=== PATIENT | male | born 1960 | race Caucasian/White ===

== ENCOUNTER 2017-09-30 14:16 | Outpatient (CLI) | payer OTHER ==
[2017-09-30] MEDS ORDERED: EPINEPHrine 1 MG/ML AMP ONE (14:30)
[2017-09-30] MEDS ORDERED: Lidocaine 1% PF 10 ML AMP ONE (14:30)
[2017-09-30] MEDS ORDERED: Iopamidol 300 61% 50 ML VIAL FS ONE (14:30)
[2017-09-30] MEDS ORDERED: Gadobenate Dimeglumine 529 MG/1 ML (20ML VIAL) ONE (14:30)
--- NOTE | 2017-09-30 18:08 | RAD ---
FLUOROSCOPIC GUIDED LEFT SHOULDER ARTHROGRAM: Date: 09/30/17 HISTORY: Left shoulder pain. FLUOROSCOPY: Total fluoroscopy time 0.4 minutes with total dose of 24.3 mGy*cm^2. TECHNIQUE: The procedure, including risks and complications, were explained to the patient and informed consent was obtained. The patient was placed on the fluoroscopy table in the supine position. The left should er was placed in external rotation. Area overlying the upper 1/3 left glenohumeral joint was marked, and the area was then meticulously prepped and draped in the sterile fashion. Skin and subcutaneous tissues were infiltrated with buffered 1% lidocaine for local anesthesia. A 22 gauge spinal needle was then advanced into the left glenohumeral joint. Inner stylette was removed, a nd a small amount of contrast was injected, confirming placement within the left shoulder joint. Appr oximately 12 mL of a mixture of Gadolinium, Omnipaque-300, lidocaine, a small amount of epinephrine, and sterile saline were instilled into the left glenohumeral joint. Needle was removed, and hemostasi s was achieved with direct pressure. The patient tolerated the procedure well and without immediate complication. The patient was transpor rodger to MRI for further imaging of the left shoulder. IMPRESSION: 1. Technically successful left shoulder arthrogram. 2. Large intraarticular loose body within the subcoracoid bursa. 3. No fracture or dislocation involving the left shoulder. 4. Vascular calcifications left neck. POS: [facility]
--- NOTE | 2017-09-30 19:03 | MRI ---
MRI LEFT SHOULDER WITH INTRAARTICULAR CONTRAST: INDICATIONS: Left shoulder pain for two months without a history of trauma. TECHNIQUE: Multiplanar, multisequence MR images were obtained of the left shoulder, following the intraarticular administration of a diluted Gadolinium solution. Please see the separately dictated left shoulder a rthrogram for details concerning the injection technique. FINDINGS: There is a thin linear area of Gadolinium signal intensity and T2 hyperintensity seen posterior to th e biceps anchor, on image 13 of series 6 and image 13 of series 4. There is a similar positioned foc us of Gadolinium signal intensity seen on the ABER images within the posterior-superior labrum, just posterior to the biceps anchor, on image 8 of series 11, suspicious for a tiny, partial thickness SLA P tear. The glenohumeral articular surface is normal appearing. The anterior-inferior glenohumeral labral ligamentous complex is intact. The biceps anchor complex appears intact. The biceps tendon i s located. The rotator cuff tendons appear within normal limits. No muscular atrophy is evident. T here is a 2.2 x 3.2 x 1.6 cm intraarticular body within the subcoracoid recess. The AC joint appears within normal limits. There is a type II acromion. No os acromiale is present. IMPRESSION: 1. Small partial thickness superior labrum anterior and posterior tear within the posterior-superior aspect of the glenohumeral joint. 2. Intraarticular body within the subcoracoid recess. 3. Rotator cuff tendon is intact. 4. The anterior-inferior glenohumeral labral ligamentous complex is intact. POS: [facility]
== END 2017-09-30 14:17 | disposition home or self-care (01) ==
LOC: RAD 14:16
PROVIDERS: ATTEND Orthopaedic Surgery
DX: M25.512 Pain in left shoulder (principal); S43.492A Other sprain of left shoulder joint, initial encounter; I70.8 Atherosclerosis of other arteries
CPT/HCPCS: 23350; A9579; J0171; J7050